=== PATIENT | male | born 1955 | race Caucasian/White ===

== ENCOUNTER 2016-06-05 20:05 | Emergency (ER) | payer SELFPAY ==
[~2016-06-05] VITALS: Ht 182.9 cm; Wt 77.0 kg
[~2016-06-05 20:05] MED LIST: BACT800T5 PO; CEPH500C3 PO; IBUP800T23 PO
[2016-06-05 20:25] VITALS: BP 150/83; PULSE 92; RESP 16; TEMP 98.5; O2SAT 98
== END 2016-06-05 21:44 | disposition left against medical advice (07) ==
LOC: NETRI 20:05
DX: R68.89 Other general symptoms and signs (principal)
CPT/HCPCS: 99281